=== PATIENT | female | born 1960 | race Caucasian/White ===

== ENCOUNTER 2016-11-08 23:15 | Emergency (ER) | payer OTHER ==
[~2016-11-08] VITALS: Ht 160 cm; Wt 81.5 kg
[~2016-11-08 23:15] MED LIST: CHL25 PO; GLIM2 PO; LEVO50 PO; LISI-662 PO; METF500T4 PO; SERT50TA12 PO
[2016-11-08 23:32] LABS: GLUCOSE,POINT OF CARE 186 MG/DL (70-110)
[2016-11-09] MEDS ORDERED: ACETAMINOPHEN/CODEINE 300-30 MG TABLET PO ONE (04:15)
[2016-11-09] MEDS ORDERED: CEPHALEXIN MONOHYDRATE 500 MG CAPSULE PO ONE (04:15)
[2016-11-09 04:21] VITALS: BP 133/72
== END 2016-11-09 04:22 | disposition home or self-care (01) ==
LOC: EMS 23:16
DX: J02.9 Acute pharyngitis, unspecified (principal); E11.65 Type 2 diabetes mellitus with hyperglycemia; I10 Essential (primary) hypertension; E03.9 Hypothyroidism, unspecified
CPT/HCPCS: 82962; 99283

== ENCOUNTER 2017-04-27 14:20 | Emergency (ER) | payer OTHER ==
[~2017-04-27] VITALS: Ht 160 cm; Wt 77.0 kg
[2017-04-27] MEDS ORDERED: DOCU-275 PO (14:35)
[2017-04-27] MEDS ORDERED: OMEP20CA10 PO (14:35)
[2017-04-27] MEDS ORDERED: ASPI81TA33 PO (14:35)
[2017-04-27] MEDS ORDERED: ATOR40TA71 PO (14:35)
[2017-04-27 14:55] LABS: EOSINOPHILS # (AUTO) 1.44 K/uL (0.00-0.70); EOSINOPHILS % (AUTO) 13.66 % (1.0-6.0); HEMATOCRIT 39.9 % (36-46); HEMOGLOBIN 13.4 g/dL (12.0-16.0); LYMPHOCYTES # (AUTO) 3.4 K/uL (1.0-4.8); LYMPHOCYTES % (AUTO) 32.6 % (22.0-44.0); MEAN CORPUSCULAR HEMOGLOBIN 30.1 pg (26.0-34.0); MEAN CORPUSCULAR HGB CONC 33.5 G/dL (31.0-37.0); MEAN CORPUSCULAR VOLUME 90 fL (80-100); MONOCYTES # (AUTO) 0.8 K/uL (0.1-1.0); MONOCYTES % (AUTO) 7.4 % (2.0-9.0); NEUTROPHILS # (AUTO) 4.8 K/uL (1.8-7.7); NEUTROPHILS % (AUTO) 45.3 % (40.0-70.0); PLATELET COUNT (AUTO) 208 K/uL (150-450); RED BLOOD CELL COUNT(AUTO) 4.43 MIL/uL (4.00-5.20); RED CELL DISTRIBUTION WIDTH 13.4 % (11.5-14.5)
[2017-04-27 15:25] LABS: ANION GAP 9 mmol/L (8-16); CALCIUM, TOTAL 9.7 mg/dL (8.8-10.5); CARBON DIOXIDE 29 mmol/L (22-29); CHLORIDE 100 mmol/L (98-107); CREATININE 0.63 mg/dL (0.60-1.30); GLOMERULAR FILTR. RATE CALC > 60 mL/min (>60); GLUCOSE,RANDOM 160 mg/dL (70-110); POTASSIUM 3.5 mmol/L (3.5-5.1); SODIUM SERUM 138 mmol/L (136-145); UREA NITROGEN, BLOOD 21 mg/dL (7-18)
[2017-04-27 15:30] LABS: ALANINE AMINOTRANSFERASE 70 U/L (12-78); ALKALINE PHOSPHATASE 150 U/L (46-116); ASPARTATE AMINOTRANSFERASE 25 U/L (15-37); BILIRUBIN,TOTAL 0.2 mg/dL (0.1-1.0); TOTAL PROTEIN, SERUM 7.7 g/dL (6.4-8.2)
[2017-04-27 16:16] VITALS: BP 121/64
== END 2017-04-27 17:17 | disposition home or self-care (01) ==
LOC: EMS 14:25
DX: R07.9 Chest pain, unspecified (principal); K21.9 Gastro-esophageal reflux disease without esophagitis; E11.9 Type 2 diabetes mellitus without complications; I10 Essential (primary) hypertension; E03.9 Hypothyroidism, unspecified
CPT/HCPCS: 93005; 99285

== ENCOUNTER 2021-08-12 07:43 | Inpatient (IN) | payer OTHER ==
[~2021-08-12] VITALS: Ht 160 cm; Wt 81.4 kg
[~2021-08-12 07:43] MED LIST changes: +AMIT-166 PO; +ASPI-1444 PO; +ASPI-556 PO; -CHL25 PO; +DIVA-53 PO; +DOCU250C16 PO; +DSS100 PO; +EZET10TA57 PO; +FLUO10CA24 PO; +IBUP200C5 PO; +INSU100I26 SQ; +LEVO50TA4 PO; +LIPA1CAP8 PO; -LISI-662 PO; +LISI-894 PO; +LOVA20TA73 PO; +METF-1211 PO; +METF-446 PO; -METF500T4 PO; +OMEG-189 PO; +OMEP20 PO; +PERCT PO; -SERT50TA12 PO; +VITA-328 PO
[2021-08-12] MEDS ORDERED: SODIUM CHLORIDE 0.9% 1,000 ML IV ONE (08:15)
[2021-08-12 08:46] LABS: COVID AG,FIA SOURCE NASOPHARYNGEAL
[2021-08-12 08:53] LABS: BASOPHILS % (AUTO) 0.7 % (0.0-2.0); EOSINOPHILS % (AUTO) 0.6 % (1.0-6.0); HEMATOCRIT 38.1 % (36-46); HEMOGLOBIN 13.2 g/dL (12.0-16.0); LYMPHOCYTES # (AUTO) 1.4 K/uL (1.0-4.8); LYMPHOCYTES % (AUTO) 16.7 % (22.0-44.0); MEAN CORPUSCULAR HEMOGLOBIN 29.6 pg (26.0-34.0); MEAN CORPUSCULAR HGB CONC 34.6 G/dL (31.0-37.0); MEAN CORPUSCULAR VOLUME 85 fL (80-100); MONOCYTES # (AUTO) 0.7 K/uL (0.1-1.0); MONOCYTES % (AUTO) 8.1 % (2.0-9.0); NEUTROPHILS # (AUTO) 6.4 K/uL (1.8-7.7); NEUTROPHILS % (AUTO) 73.9 % (40.0-70.0); PLATELET COUNT (AUTO) 243 K/uL (150-450); RED BLOOD CELL COUNT(AUTO) 4.46 MIL/uL (4.00-5.20); RED CELL DISTRIBUTION WIDTH 13.7 % (11.5-14.5)
[2021-08-12 08:59] LABS: ANION GAP 11 mmol/L (8-16); CALCIUM, TOTAL 9.4 mg/dL (8.8-10.5); CARBON DIOXIDE 30 mmol/L (22-29); CHLORIDE 92 mmol/L (98-107); CREATININE 0.85 mg/dL (0.60-1.30); GLOMERULAR FILTR. RATE CALC > 60 mL/min (>60); GLUCOSE,RANDOM 344 mg/dL (70-110); POTASSIUM 3.5 mmol/L (3.5-5.1); SODIUM SERUM 133 mmol/L (136-145); UREA NITROGEN, BLOOD 16 mg/dL (7-18)
[2021-08-12 09:05] LABS: ALANINE AMINOTRANSFERASE 62 U/L (12-78); ALBUMIN 3.8 g/dL (3.4-5.0); ALKALINE PHOSPHATASE 154 U/L (46-116); ASPARTATE AMINOTRANSFERASE 32 U/L (15-37); BILIRUBIN,TOTAL 0.5 mg/dL (0.1-1.0); TOTAL PROTEIN, SERUM 7.6 g/dL (6.4-8.2)
[2021-08-12 09:25] LABS: INFLUENZA TYPE A NEGATIVE FOR TYPE A (NEGATIVE); INFLUENZA TYPE B NEGATIVE FOR TYPE B (NEGATIVE)
[2021-08-12] MEDS ORDERED: 0.9% SODIUM CHLORIDE 10 ML SYRINGE IVP PRN (11:00)
[2021-08-12] MEDS ORDERED: INSULIN REGULAR, HUMAN 100 UNITS/ML IVP ONE (11:00)
[2021-08-12] MEDS ORDERED: ACETAMINOPHEN 325 MG TABLET PO PRN ×2 (11:00→13:15)
[2021-08-12] MEDS ORDERED: ONDANSETRON HCL 4 MG/2 ML VIAL IVP PRN ×2 (11:00→13:15)
[2021-08-12 11:21] LABS: GLUCOSE,POINT OF CARE 306 MG/DL (70-110)
[2021-08-12 12:57] VITALS: BP 133/64
[2021-08-12 12:58] LABS: APPEARANCE,URINE CLEAR (CLEAR); BILIRUBIN,URINE NEGATIVE (NEGATIVE); GLUCOSE, URINE (UA) >=1000 mg/dL (NEGATIVE); KETONES,URINE NEGATIVE (NEGATIVE); LEUKOCYTE ESTERASE ,URINE NEGATIVE (NEGATIVE); NITRATE,URINE NEGATIVE (NEGATIVE); OCCULT BLOOD,URINE NEGATIVE (NEGATIVE); PH,URINE 7.5 (5.0-8.0); PROTEIN,URINE NEGATIVE (NEGATIVE); UROBILINOGEN,URINE 0.2 mg/dL (<=1.0)
[2021-08-12 13:08] LABS: BACTERIA,URINE None Seen /HPF (None Seen); RBC,URINE None Seen /HPF (0-2); SQUAMOUS EPITHELIAL CELL,UR Few /LPF (None Seen); WBC,URINE None Seen /HPF (0-5)
[2021-08-12] MEDS ORDERED: MORPHINE SULFATE 2 MG/ML SYRINGE IVP PRN (13:15)
[2021-08-12] MEDS ORDERED: MAGNESIUM HYDROXIDE SUSPENSION 30 ML UDCUP PO PRN (13:15)
[2021-08-12] MEDS ORDERED: FLUO10CA24 PO (13:15)
[2021-08-12] MEDS ORDERED: BISACODYL 10 MG RECTAL RECTAL SUPPOSITORY PR PRN (13:15)
[2021-08-12] MEDS: GLIMEPIRIDE 2 MG TABLET PO SCH (17:12)
[2021-08-12] MEDS: LOVASTATIN 20 MG TABLET PO SCH (17:12)
[2021-08-12] MEDS: MetFORMIN HCL 500 MG TABLET PO SCH (17:12)
[2021-08-12] MEDS: HEPARIN SODIUM,PORCINE 5,000 UNITS/ML VIAL SQ SCH (17:12)
[2021-08-12] MEDS: PROTEASE PO SCH (17:13)
[2021-08-12] MEDS: AMYLASE PO SCH (17:13)
[2021-08-12] MEDS: [UNRECOGNIZED DRUG - OTHER] PO SCH (17:13)
[2021-08-12] MEDS: LIPASE PO SCH (17:13)
[2021-08-12 18:43] VITALS: BP 136/68
[2021-08-12 19:45] VITALS: BP 133/70
[2021-08-12] MEDS: DIVALPROEX SODIUM 250 MG DR TABLET PO SCH (20:39)
[2021-08-12] MEDS: DOCUSATE SODIUM 100 MG CAPSULE PO SCH (20:39)
[2021-08-12] MEDS ORDERED: DEXTROSE 50%-WATER 25 GM/50 ML SYRINGE IVP PRN (21:30)
[2021-08-12] MEDS: ZOLPIDEM TARTRATE 5 MG TABLET PO PRN (21:38)
[2021-08-12] MEDS: BENZONATATE 100 MG CAPSULE PO PRN (21:38)
[2021-08-12] MEDS: INSULIN LISPRO 100 UNITS/ML SQ PRN (21:39)
[2021-08-12 21:56] LABS: GLUCOMETER DEV NAME(LOC) 5S.2B; GLUCOSE,POINT OF CARE 215 MG/DL (70-110)
[2021-08-12 23:53] VITALS: BP 139/79
[2021-08-13] MEDS: HEPARIN SODIUM,PORCINE 5,000 UNITS/ML VIAL SQ SCH ×3 (00:18→16:26)
[2021-08-13 04:18] VITALS: BP 143/79
[2021-08-13] MEDS: LEVOTHYROXINE SODIUM 50 MCG TABLET PO SCH (06:35)
[2021-08-13] MEDS: INSULIN LISPRO 100 UNITS/ML SQ PRN ×3 (06:35→20:54)
[2021-08-13 07:13] LABS: BASOPHILS % (AUTO) 0.4 % (0.0-2.0); EOSINOPHILS % (AUTO) 0.3 % (1.0-6.0); HEMATOCRIT 39.9 % (36-46); HEMOGLOBIN 13.8 g/dL (12.0-16.0); LYMPHOCYTES # (AUTO) 2.8 K/uL (1.0-4.8); LYMPHOCYTES % (AUTO) 34.6 % (22.0-44.0); MEAN CORPUSCULAR HEMOGLOBIN 29.5 pg (26.0-34.0); MEAN CORPUSCULAR HGB CONC 34.6 G/dL (31.0-37.0); MEAN CORPUSCULAR VOLUME 85 fL (80-100); MONOCYTES # (AUTO) 0.8 K/uL (0.1-1.0); MONOCYTES % (AUTO) 9.7 % (2.0-9.0); NEUTROPHILS # (AUTO) 4.5 K/uL (1.8-7.7); PLATELET COUNT (AUTO) 263 K/uL (150-450); RED BLOOD CELL COUNT(AUTO) 4.68 MIL/uL (4.00-5.20); RED CELL DISTRIBUTION WIDTH 13.6 % (11.5-14.5)
[2021-08-13 07:56] VITALS: BP 137/76
[2021-08-13 07:56] LABS: ANION GAP 10 mmol/L (8-16); CALCIUM, TOTAL 9.8 mg/dL (8.8-10.5); CARBON DIOXIDE 28 mmol/L (22-29); CHLORIDE 95 mmol/L (98-107); CREATININE 0.72 mg/dL (0.60-1.30); GLOMERULAR FILTR. RATE CALC > 60 mL/min (>60); GLUCOSE,RANDOM 264 mg/dL (70-110); POTASSIUM 3.2 mmol/L (3.5-5.1); SODIUM SERUM 133 mmol/L (136-145); UREA NITROGEN, BLOOD 10 mg/dL (7-18)
[2021-08-13] MEDS: LISINOPRIL 20 MG TABLET PO SCH (07:58)
[2021-08-13] MEDS: FLUoxetine HCL 10 MG CAPSULE PO SCH (07:58)
[2021-08-13] MEDS: EZETIMIBE 10 MG TABLET PO SCH (07:58)
[2021-08-13] MEDS: ASPIRIN 81 MG DR TABLET PO SCH (07:58)
[2021-08-13] MEDS: GLIMEPIRIDE 2 MG TABLET PO SCH ×3 (07:59→17:42)
[2021-08-13] MEDS: DOCUSATE SODIUM 100 MG CAPSULE PO SCH ×2 (07:59→20:47)
[2021-08-13] MEDS: AMYLASE PO SCH ×3 (07:59→17:29)
[2021-08-13] MEDS: [UNRECOGNIZED DRUG - OTHER] PO SCH ×3 (07:59→17:29)
[2021-08-13] MEDS: LIPASE PO SCH ×3 (07:59→17:29)
[2021-08-13] MEDS: PROTEASE PO SCH ×3 (07:59→17:29)
[2021-08-13] MEDS: MetFORMIN HCL 500 MG TABLET PO SCH ×2 (07:59→17:27)
[2021-08-13] MEDS: PANTOPRAZOLE SODIUM 40 MG DR TABLET PO SCH (07:59)
[2021-08-13 09:01] LABS: GLUCOMETER DEV NAME(LOC) 5S.2B; GLUCOSE,POINT OF CARE 265 MG/DL (70-110)
[2021-08-13 12:20] VITALS: BP 144/68
[2021-08-13 12:21] LABS: GLUCOMETER DEV NAME(LOC) 5S.2B; GLUCOSE,POINT OF CARE 212 MG/DL (70-110)
[2021-08-13 16:22] VITALS: BP 128/74
[2021-08-13] MEDS: LOVASTATIN 20 MG TABLET PO SCH (17:29)
[2021-08-13 17:47] LABS: GLUCOMETER DEV NAME(LOC) 5N.3; GLUCOSE,POINT OF CARE 230 MG/DL (70-110)
[2021-08-13 19:48] VITALS: BP 139/67
[2021-08-13 19:56] LABS: GLUCOMETER DEV NAME(LOC) 5N.1C; GLUCOSE,POINT OF CARE 261 MG/DL (70-110)
[2021-08-13] MEDS: DIVALPROEX SODIUM 250 MG DR TABLET PO SCH (20:47)
[2021-08-13] MEDS: AMOX TR/POT CLAV 500 MG/125 MG TABLET PO SCH (20:47)
[2021-08-13] MEDS: ZOLPIDEM TARTRATE 5 MG TABLET PO PRN (20:47)
[2021-08-13] MEDS: HYDROCODONE/ACETAMINOPHEN 5-325 MG TABLET PO PRN (20:47)
[2021-08-13] MEDS: BENZONATATE 100 MG CAPSULE PO PRN (20:50)
[2021-08-14 00:16] VITALS: BP 153/80
[2021-08-14] MEDS: HEPARIN SODIUM,PORCINE 5,000 UNITS/ML VIAL SQ SCH ×2 (00:18→08:22)
[2021-08-14 04:27] VITALS: BP 139/72
[2021-08-14 06:09] LABS: BASOPHILS % (AUTO) 0.9 % (0.0-2.0); EOSINOPHILS % (AUTO) 0.5 % (1.0-6.0); HEMATOCRIT 39.5 % (36-46); HEMOGLOBIN 13.7 g/dL (12.0-16.0); LYMPHOCYTES # (AUTO) 3.5 K/uL (1.0-4.8); LYMPHOCYTES % (AUTO) 32.1 % (22.0-44.0); MEAN CORPUSCULAR HEMOGLOBIN 29.2 pg (26.0-34.0); MEAN CORPUSCULAR HGB CONC 34.6 G/dL (31.0-37.0); MEAN CORPUSCULAR VOLUME 84 fL (80-100); MONOCYTES % (AUTO) 9.2 % (2.0-9.0); NEUTROPHILS # (AUTO) 6.3 K/uL (1.8-7.7); NEUTROPHILS % (AUTO) 57.3 % (40.0-70.0); PLATELET COUNT (AUTO) 279 K/uL (150-450); RED BLOOD CELL COUNT(AUTO) 4.68 MIL/uL (4.00-5.20); RED CELL DISTRIBUTION WIDTH 13.7 % (11.5-14.5)
[2021-08-14 06:24] LABS: ANION GAP 7 mmol/L (8-16); CALCIUM, TOTAL 10.3 mg/dL (8.8-10.5); CARBON DIOXIDE 31 mmol/L (22-29); CHLORIDE 96 mmol/L (98-107); CREATININE 0.69 mg/dL (0.60-1.30); GLOMERULAR FILTR. RATE CALC > 60 mL/min (>60); GLUCOSE,RANDOM 254 mg/dL (70-110); POTASSIUM 3.9 mmol/L (3.5-5.1); SODIUM SERUM 134 mmol/L (136-145); UREA NITROGEN, BLOOD 15 mg/dL (7-18)
[2021-08-14] MEDS: BENZONATATE 100 MG CAPSULE PO PRN (06:40)
[2021-08-14] MEDS: LEVOTHYROXINE SODIUM 50 MCG TABLET PO SCH (06:40)
[2021-08-14 07:11] LABS: GLUCOMETER DEV NAME(LOC) 5S.1B; GLUCOSE,POINT OF CARE 262 MG/DL (70-110)
[2021-08-14 08:03] VITALS: BP 162/79
[2021-08-14] MEDS: LISINOPRIL 20 MG TABLET PO SCH (08:21)
[2021-08-14] MEDS: AMOX TR/POT CLAV 500 MG/125 MG TABLET PO SCH (08:21)
[2021-08-14] MEDS: ASPIRIN 81 MG DR TABLET PO SCH (08:21)
[2021-08-14] MEDS: PANTOPRAZOLE SODIUM 40 MG DR TABLET PO SCH (08:21)
[2021-08-14] MEDS: EZETIMIBE 10 MG TABLET PO SCH (08:22)
[2021-08-14] MEDS: FLUoxetine HCL 10 MG CAPSULE PO SCH (08:22)
[2021-08-14] MEDS: DOCUSATE SODIUM 100 MG CAPSULE PO SCH (08:22)
[2021-08-14] MEDS: LIPASE PO SCH ×2 (08:23→11:46)
[2021-08-14] MEDS: [UNRECOGNIZED DRUG - OTHER] PO SCH ×2 (08:23→11:46)
[2021-08-14] MEDS: PROTEASE PO SCH ×2 (08:23→11:46)
[2021-08-14] MEDS: GLIMEPIRIDE 2 MG TABLET PO SCH (08:23)
[2021-08-14] MEDS: AMYLASE PO SCH ×2 (08:23→11:46)
[2021-08-14] MEDS: MetFORMIN HCL 500 MG TABLET PO SCH (08:23)
[2021-08-14 10:58] VITALS: BP 152/72
[2021-08-14] MEDS: HYDROCODONE/ACETAMINOPHEN 5-325 MG TABLET PO PRN (11:59)
[2021-08-14] MEDS: INSULIN LISPRO 100 UNITS/ML SQ PRN (12:05)
[2021-08-14 13:11] LABS: GLUCOMETER DEV NAME(LOC) 5N.1C; GLUCOSE,POINT OF CARE 339 MG/DL (70-110)
[2021-08-14] MEDS ORDERED: AMOX1TAB15 PO (13:51)
[2021-08-14] MEDS ORDERED: CIPOTIC TP (13:51)
[2021-08-14] MEDS ORDERED: ASPI-1444 PO (13:51)
== END 2021-08-14 15:54 | disposition home or self-care (01) | DRG 48 ==
LOC: EMS 07:43 → 5S 11:25 → 5N 08-13 10:50
PROVIDERS: ADMIT Internal Medicine; ATTEND Internal Medicine
DX: G90.8 Other disorders of autonomic nervous system (principal); E03.9 Hypothyroidism, unspecified; E86.0 Dehydration; E78.00 Pure hypercholesterolemia, unspecified; I10 Essential (primary) hypertension; R10.13 Epigastric pain; J02.9 Acute pharyngitis, unspecified; E78.5 Hyperlipidemia, unspecified; H66.90 Otitis media, unspecified, unspecified ear; E11.9 Type 2 diabetes mellitus without complications; Z20.822 Contact with and (suspected) exposure to COVID-19; Z90.49 Acquired absence of other specified parts of digestive tract; Z79.84 Long term (current) use of oral hypoglycemic drugs; Z79.82 Long term (current) use of aspirin
CPT/HCPCS: 70450; 71045; 72125; 80048; 80053; 81001; 82962; 84484; 85025; 87430; 87804; 93005; 93306; 93880; 97162; 99285; J1644; J1815; Q9967; 36415-L1; 36415-TC; U0003

== ENCOUNTER 2021-11-22 18:10 | Emergency (ER) | payer OTHER ==
[~2021-11-22] VITALS: Ht 160 cm; Wt 81.0 kg
[~2021-11-22 18:10] MED LIST changes: +AMOX1TAB15 PO; -ASPI-556 PO; +CIPOTIC TP; -DSS100 PO; -LEVO50 PO; -METF-1211 PO
[2021-11-22] MEDS ORDERED: ACETAMINOPHEN 500 MG TABLET PO ONE (18:45)
[2021-11-22 19:30] VITALS: BP 119/62
== END 2021-11-22 19:50 | disposition home or self-care (01) ==
LOC: EMS 18:13
DX: S90.122A Contusion of left lesser toe(s) without damage to nail, initial encounter (principal); E11.9 Type 2 diabetes mellitus without complications; E78.00 Pure hypercholesterolemia, unspecified; I10 Essential (primary) hypertension; E03.9 Hypothyroidism, unspecified; Z90.49 Acquired absence of other specified parts of digestive tract; W22.8XXA Striking against or struck by other objects, initial encounter; Y93.89 Activity, other specified; Y92.89 Other specified places as the place of occurrence of the external cause; Y99.8 Other external cause status
CPT/HCPCS: 82962; 99283